=== PATIENT | male | born 1975 | race Hispanic/Latino ===

== ENCOUNTER 2022-08-20 22:31 | Emergency (ER) | payer OTHER ==
[~2022-08-20] VITALS: Ht 172.7 cm; Wt 108.9 kg
[2022-08-20 22:37] VITALS: BP 126/68
[2022-08-20] MEDS ORDERED: FLUORESCEIN SODIUM 1 STRIP STRIP OP SCH (23:00)
[2022-08-20] MEDS ORDERED: GENTAMICIN SULFATE 0.3% 5ML DROPS OD SCH (23:00)
[2022-08-20] MEDS ORDERED: TETANUS/DIPHTHERIA TOXOID [ADULT] 0.5 ML VIAL IM ONE (23:00)
== END 2022-08-21 00:04 | disposition home or self-care (01) ==
LOC: EDH 22:31
DX: T15.01XA Foreign body in cornea, right eye, initial encounter (principal); X58.XXXA Exposure to other specified factors, initial encounter; Y93.89 Activity, other specified; Y92.89 Other specified places as the place of occurrence of the external cause; Y99.8 Other external cause status
CPT/HCPCS: 65222; 90471; 90714

== ENCOUNTER → 2025-08-17 | Outpatient (CLI) | payer OTHER | END | disposition home or self-care (01) | LOC: RAH 14:18 | PROVIDERS: ATTEND Emergency Medicine | DX: Z13.6 Encounter for screening for cardiovascular disorders (principal) | CPT/HCPCS: 75571 ==